=== PATIENT | female | born 1995 | race American Indian/Alaskan Native ===

== ENCOUNTER 2017-01-01 15:44 | Emergency (ER) | payer SELFPAY ==
[2017-01-01 16:01] VITALS: RESP 18; TEMP 97.9
[2017-01-01 16:34] LABS: RBC URINE 1 /hpf (0-3); URINE BILIRUBIN NEGATIVE (NEGATIVE); URINE COLOR Yellow (YELLOW); URINE GLUCOSE (UA) NORMAL (Normal); URINE KETONE NEGATIVE (NEGATIVE); URINE LEUKOCYTE ESTERASE NEG Leu/uL (Negative); URINE PROTEIN NEGATIVE (NEGATIVE); URINE UROBILINOGEN NORMAL mg/dL (0.2-1.0); WBC URINE 1 /hpf (0-5)
[2017-01-01 16:47] LABS: URINE BLOOD 2+ (NEGATIVE)
--- NOTE | 2017-01-01 17:08 | C.PDOC ---
History Of Present Illness 21 yr old female presents to the ER for evaluation of dysfunctional uterine bleeding. Patient states she started bleeding on 12/13/16 and has not stopped since then. Patient reports, noted some clots in the urine. Patient was [place] [facility] [place], had urine and blood work done with normal results and was referred to [facility] but patient states she never followed up. Patient denies recent pregnancies, fever, chills, dizziness, headache, chest pain, SOB, palpitation, nausea, vomiting, abdominal pain, dysuria, incontinence, back pain, weakness or numbness. Ambulate to Ed for evaluation, not in any apparent distress. Time Seen by Provider: 01/01/17 16:18 Chief Complaint (Nursing): Female Genitourinary History Per: Patient History/Exam Limitations: no limitations Onset/Duration Of Symptoms: Persistent (Persistent since 12/13) Current Symptoms Are (Timing): Still Present Past Medical History Reviewed: Historical Data, Nursing Documentation, Vital Signs Vital Signs: Last Vital Signs Temp 97.9 F 01/01/17 15:57 Pulse 71 01/01/17 18:46 Resp 18 01/01/17 18:46 BP 110/68 01/01/17 18:46 Pulse Ox 98 01/01/17 18:46 Family History: States: No Known Family Hx - Social History Hx Alcohol Use: No Hx Substance Use: No - Immunization History Hx Tetanus Toxoid Vaccination: No Hx Influenza Vaccination: No Hx Pneumococcal Vaccination: No Review Of Systems Except As Marked, All Systems Reviewed And Found Negative. Constitutional: Negative for: Fever, Chills Cardiovascular: Negative for: Chest Pain Respiratory: Negative for: Shortness of Breath Gastrointestinal: Negative for: Nausea, Vomiting, Abdominal Pain Genitourinary: Positive for: Vaginal Bleeding. Negative for: Dysuria, Incontinence Musculoskeletal: Negative for: Back Pain Neurological: Negative for: Weakness, Numbness Physical Exam - Physical Exam Appears: Non-toxic, No Acute Distress Skin: Warm, Dry, No Rash Head: Normacephalic Eye(s): bilateral: PERRL Nose: No Discharge Oral Mucosa: Moist Tongue: Normal Appearing Lips: Normal Appearing Throat: No Erythema, No Drooling Neck: Supple Cardiovascular: Rhythm Regular, No Murmur, No JVD Respiratory: No Decreased Breath Sounds, No Accessory Muscle Use, No Rales, No Rhonchi, No Stridor, No Wheezing Gastrointestinal/Abdominal: Soft, No Tenderness, No Guarding, No Rebound Back: No CVA Tenderness Pelvic: Vaginal Bleeding (Scant blood in cervix with clots.), No Cervical Motion Tenderness, No Cervix Open Extremity: Normal ROM, No Deformity, No Swelling Neurological/Psych: Oriented x3, Normal Speech, Normal Motor, Normal Sensation, Normal Reflexes ED Course And Treatment O2 Sat by Pulse Oximetry: 100 (RA) Pulse Ox Interpretation: Normal - CT Scan/US US - Transvaginal Other Rad Studies (CT/US): Read By Radiologist, Radiology Report Reviewed CT/US Interpretation: HISTORY: VAGINAL BLEEDING. COMPARISON: None available. TECHNIQUE: Real-time transabdominal pelvic ultrasound was performed. In addition a transvaginal pelvic ultrasound was necessary to better depict pelvic anatomy. FINDINGS: UTERUS: Measures 8.4 x 3.7 x 4.0 cm. Anteverted. ENDOMETRIUM: Measures 9 mm in diameter. CERVIX: No cervical abnormality identified. RIGHT OVARY: Measures 3.8 x 2.5 x 3.6 cm. Blood flow is demonstrated. LEFT OVARY: Measures 3.9 x 2.6 x 3.1 cm. Blood flow is demonstrated. 2.8 x 1.4 x 2.1 cm cyst. FREE FLUID: Small fluid within the cul- de-sac. OTHER FINDINGS: None. IMPRESSION: 2.8 cm left ovarian cyst. Small fluid within the cul-de-sac. Progress Note: On re-eavluation, p is afebrile, hemodynamicaly stable. NOn- toxic. Tolerate Po well in ED. Ambulatory in ED with stable gait. PulsEOx 100 % RA. ENT: no acute findings. neck: SUpple, (-)JVD, (-) carotid bruits. Lungs : CTA B/L, Bs equal B/L. Abd: benign, (-) guarding, (-) rebound. back: (-) CVA tenderness. Neurologicaly intact. UA results review- normal, preg (-). US transvaginal review, no acute abnormalities. Pt has clinical findings c/w DUB. pt advised. ref. to F/u with [facility] in 2-3 days for re-eval. return to ED if any worsening or new changes. Medical Decision Making Medical Decision Making: PLAN: * US - Transvaginal * HCG * Urinalysis Disposition Counseled Patient/Family Regarding: Diagnosis, Need For Followup - Disposition [facility] Disposition: HOME/ ROUTINE Disposition Time: 18:20 Condition: STABLE Additional Instructions: ENCOURAGE FLUIDS FOLLOW UP WITH [facility] IN 1-2 DAYS FOR RE-EVALUATION AND FURTHER TREATMENT RETURN TO ED IF ANY WORSENING OR NEW CHANGES. Instructions: Dysfunctional Uterine Bleeding (ED) Forms: [employer] ([place]) - Clinical Impression Clinical Impression: DUB (dysfunctional uterine bleeding) - PA / [employer] SOFTWARE DEVELOPER / Resident Statement MD/DO has reviewed & agrees with the documentation as recorded. - Scribe Statement The provider has reviewed the documentation as recorded by the Scribe Therese Singh All medical record entries made by the Scribe were at my direction and personally dictated by me. I have reviewed the chart and agree that the record accurately reflects my personal performance of the history, physical exam, medical decision making, and the department course for this patient. I have also personally directed, reviewed, and agree with the discharge instructions and disposition.
--- NOTE | 2017-01-01 18:21 | US ---
HISTORY: VAGINAL BLEEDING COMPARISON: None available. TECHNIQUE: Real-time transabdominal pelvic ultrasound was performed. In addition a transvaginal pelvic ultrasound was necessary to better depict pelvic anatomy. FINDINGS: UTERUS: Measures 8.4 x 3.7 x 4.0 cm. Anteverted. ENDOMETRIUM: Measures 9 mm in diameter. CERVIX: No cervical abnormality identified. RIGHT OVARY: Measures 3.8 x 2.5 x 3.6 cm. Blood flow is demonstrated. LEFT OVARY: Measures 3.9 x 2.6 x 3.1 cm. Blood flow is demonstrated. 2.8 x 1.4 x 2.1 cm cyst. FREE FLUID: Small fluid within the cul-de-sac. OTHER FINDINGS: None. IMPRESSION: 2.8 cm left ovarian cyst. Small fluid within the cul-de-sac.
[2017-01-01 18:46] VITALS: BP 110/68; PULSE 71
[2017-01-01 22:15] VITALS: O2SAT 100
== END 2017-01-01 18:47 | disposition home or self-care (01) ==
LOC: C.ER 15:44
DX: N93.8 Other specified abnormal uterine and vaginal bleeding (principal)